=== PATIENT | male | born 1980 | race Caucasian/White ===

== ENCOUNTER 2022-05-03 22:53 | Emergency (ER) | payer OTHER ==
[2022-05-03 23:51] VITALS: BP 132/86; PULSE 68; RESP 20; TEMP 97.5; BMI 32.8
[2022-05-04 01:54] LABS: BASO % 0.5 % (0-2.0); HEMATOCRIT 43.2 % (35.4-49); HEMOGLOBIN 14.8 GM/dL (11.7-16.9); LYMPH % 55.5 % (8-40); MCH 29.2 pg (25.7-33.7); MCHC 34.2 g/dl (32.0-35.9); MEAN CELL VOLUME 85.3 fl (80-96); MEAN PLT VOLUME 7.6 fl (7.5-11.1); MONO % 4.4 % (3.8-10.2); NEUT % 35.6 % (42.8-82.8); PLATELET COUNT 253 10^3/uL (134-434); RBC 5.06 M/mm3 (4.00-5.60); RDW 13.3 % (11.9-15.9); WHITE BLOOD COUNT 7.3 K/mm3 (4.0-10.0)
[2022-05-04 02:07] LABS: INR 0.93 (0.83-1.09); PROTHROMBIN TIME (PATIENT) 10.7 SEC (9.7-13.0)
[2022-05-04 02:10] LABS: ACTIVATED PTT 31.6 SECONDS (25.2-36.5)
[2022-05-04 02:18] LABS: ALBUMIN 4.2 g/dl (3.4-5.0); BLOOD UREA NITROGEN 10.7 mg/dL (7-18); CALCIUM 9.3 mg/dL (8.5-10.1); CO2 29 mmol/L (21-32); GLUCOSE,RANDOM 107 mg/dL (74-106)
[2022-05-04 02:19] LABS: MAGNESIUM 2.3 mg/dL (1.8-2.4)
[2022-05-04 02:21] LABS: SGOT/AST 24 U/L (15-37)
[2022-05-04 02:23] LABS: BILIRUBIN,TOTAL 0.4 mg/dL (0.2-1)
[2022-05-04 02:24] LABS: ALK PHOS 63 U/L (45-117)
[2022-05-04 02:33] LABS: ANION GAP 5 MMOL/L (8-16); CHLORIDE 108 mmol/L (98-107); SGPT/ALT 60 U/L (13-61); SODIUM 141 mmol/L (136-145)
[2022-05-04] MEDS ORDERED: FAMOTIDINE 10 MG TABLET PO ONE (04:27)
[2022-05-04] MEDS ORDERED: SUCRALFATE 1 GM TABLET (FP) PO ONE (04:27)
[2022-05-04] MEDS ORDERED: MAG HYDROX/AL HYDROX/SIMETH 30 ML UNIT-DOSE CUP PO ONE (04:27)
[2022-05-04] MEDS ORDERED: SUCRALFATE 1 GM TABLET (FP) ONE (04:33)
[2022-05-04] MEDS ORDERED: FAMOTIDINE 20 MG TABLET ONE (04:33)
[2022-05-04] MEDS ORDERED: MAG HYDROX/AL HYDROX/SIMETH 30 ML UNIT-DOSE CUP ONE (04:34)
== END 2022-05-04 06:16 | disposition home or self-care (01) ==
LOC: JER 22:53
DX: R07.9 Chest pain, unspecified (principal)
CPT/HCPCS: 0241U-QW; 36415; 70450-TC; 71046-TC-FY; 71275-TC; 80053; 82550; 82553; 83735; 84484; 85025; 85379; 85610; 85730; 93005; 93010; 99285-25; Q9967